=== PATIENT | female | born 1995 | race Caucasian/White ===

== ENCOUNTER → 2020-06-30 16:05 | Outpatient (CLI) | payer BC, SELFPAY ==
[2020-06-30 19:06] LABS: Coronavirus 19 IgG Antibody Positive (Negative)
[2020-06-30 19:07] LABS: Coronavirus 19 IgM Antibody Positive (Negative)
== END ==
PROVIDERS: PCP Obstetrics & Gynecology; Visit Provider Obstetrics & Gynecology
DX: Z01.84 Encounter for antibody response examination (principal); U07.1 COVID-19
CPT/HCPCS: 36415; 86328